=== PATIENT | male | born 1975 | race Caucasian/White ===

== ENCOUNTER 2021-07-30 22:17 | Emergency (ER) | payer SELFPAY ==
[~2021-07-30 22:17] MED LIST: HYGROTON TAB 2525 MG PO
[2021-07-30 23:58] LABS: HEMOGLOBIN 17.2 gm/dl (14.0-17.5); RED BLOOD COUNT 5.27 M/UL (4.20-5.50); WHITE BLOOD COUNT 9.7 K/UL (4.5-11.0)
== END 2021-07-31 04:20 | disposition home or self-care (01) ==
LOC: ER1 22:17
PROVIDERS: Physician Assistant Medical
DX: I10 Essential (primary) hypertension (principal); Z79.899 Other long term (current) drug therapy
CPT/HCPCS: 70450; 71045; 80053; 82550; 82553; 83874; 84484; 85025; 93005; 96374; 99284; J0360